=== PATIENT | female | born 1955 | race Native Hawaiian/Other Pacific Islander ===

== ENCOUNTER 2020-11-22 11:56 | Outpatient (CLI) | payer OTHER | END 2020-11-22 21:03 | disposition home or self-care (01) | LOC: RAD 11:56 | PROVIDERS: ATTEND Physician Assistant | DX: M25.561 Pain in right knee (principal) ==

== ENCOUNTER 2021-06-15 15:08 | Outpatient (CLI) | payer OTHER | END 2021-06-15 19:51 | disposition home or self-care (01) | LOC: RAD 15:08 | PROVIDERS: ATTEND Orthopaedic Surgery | DX: M25.561 Pain in right knee (principal) ==

== ENCOUNTER 2021-08-30 10:36 | Outpatient (CLI) | payer OTHER | END 2021-08-30 19:01 | disposition home or self-care (01) | LOC: RAD 10:36 | PROVIDERS: ATTEND Physician Assistant | DX: M25.561 Pain in right knee (principal) ==

== ENCOUNTER 2021-11-29 14:37 | Outpatient (CLI) | payer OTHER | END 2021-11-29 19:10 | disposition home or self-care (01) | LOC: RAD 14:37 | PROVIDERS: ATTEND Orthopaedic Surgery | DX: M25.561 Pain in right knee (principal) ==